=== PATIENT | female | born 1955 | race Caucasian/White ===

== ENCOUNTER 2016-04-19 16:01 | Inpatient (IN) | payer OTHER, MEDICARE ==
[~2016-04-19] VITALS: Ht 177.8 cm; Wt 92.1 kg
[~2016-04-19 16:01] MED LIST: AMARYL 2MG T2 MG/TAB PO; ASPIRIN 81M81 MG/TA2 PO; B-121000 MCG PO; BROVANA15 MCG/2 M IH; COMBIRESP IH; COZAAR 50MG50 MG/TAB PO; DALIRESP500 MCG PO; GLUCOPHAGE XR500 M1 PO; LIPITOR 40MG TA40 MG PO; PROTONIX 40MG T40 MG PO; SPIRIVA RE2.5 MCG/Ac IH; THEO-24400 MG PO; TOPROL XL 50MG50 MG PO; ZANTAC 150MG T150 MG PO
[2016-04-19] MEDS ORDERED: NORCO 325 MG-51 TAB PO (16:55)
[2016-04-19] MEDS ORDERED: COMPAZINE 110 MG/TAB PO (16:55)
[2016-04-19 17:10] VITALS: BP 100/42; PULSE 121; TEMP 98.7
[2016-04-19] MEDS ORDERED: TUSS PO (17:10)
[2016-04-19 19:46] VITALS: BP 103/60; PULSE 129; TEMP 99
[2016-04-19 23:53] VITALS: BP 101/52; PULSE 127; TEMP 98.9
[2016-04-20] VITALS (7 sets, daily range): BP systolic 106–120; BP diastolic 45–55; PULSE 99–115; TEMP 98.1–98.5
[2016-04-20 01:29] LABS: PH 6 (5-8); SQUAMOUS EPITHELIAL 0-2 /hpf; URINE APPEARANCE Clear; URINE BACTERIA Moderate /hpf; URINE BILIRUBIN Negative (NEGATIVE); URINE BLOOD Negative (NEGATIVE); URINE COLOR Yellow; URINE GLUCOSE Negative (NEGATIVE); URINE KETONE Negative (NEGATIVE); URINE RBC 0-2 /hpf; URINE UROBILINOGEN Negative (NEGATIVE)
[2016-04-20 11:47] LABS: MEAN CELL VOLUME 87 fl (80.0-100.0); MEAN CORPUSCULAR HGB CONC 32 g/dl (33.0-37.0); MEAN PLATELET VOLUME 9.1 fl (7.4-10.4); RED BLOOD COUNT 2.25 M/mm3 (4.10-5.30); REDCELL DISTRIBUTION WIDTH-CV 15.9 % (11.5-14.5)
[2016-04-20 11:59] LABS: ADD PATHOLOGY DIFF REVIEW NO; HEMATOCRIT 19.6 % (37.0-47.0); HEMOGLOBIN 6.3 g/dl (12.5-16.0); MEAN CORPUSCULAR HEMOGLOBIN 28 pg (27.0-31.0); PLATELET COUNT 23 K/mm3 (130-400)
[2016-04-20 12:41] LABS: BAND 20 % (0-10); BASOPHIL 8 % (0-2); EOSINOPHIL 12 % (0-4); NEUTROPHILS 24 % (42.0-75.2); TOTAL CELLS COUNTED 100
[2016-04-21] VITALS (12 sets, daily range): BP systolic 100–117; BP diastolic 38–58; PULSE 77–106; TEMP 97.5–98.4
[2016-04-21 07:51] LABS: BASO # 0.1 (0.0-0.2); EOS # 0.3 (0.0-0.7); EOS % 9.4 % (0-4.0); GRAN # 1.6 (1.4-6.5); GRAN % 61.1 % (42.2-75.2); LYMPH # 0.5 (1.2-3.4); LYMPH % 17.2 % (20.0-51.0); MEAN CELL VOLUME 85 fl (80.0-100.0); MEAN CORPUSCULAR HGB CONC 33 g/dl (33.0-37.0); MEAN PLATELET VOLUME 10.3 fl (7.4-10.4); MONO # 0.2 (0.1-0.6); MONO % 8.6 % (1.7-9.3); RED BLOOD COUNT 3.05 M/mm3 (4.10-5.30); REDCELL DISTRIBUTION WIDTH-CV 15.1 % (11.5-14.5); WHITE BLOOD COUNT 2.7 K/mm3 (4.8-10.8)
[2016-04-21 08:07] LABS: CALCIUM 8.9 mg/dL (8.4-10.2); CREATININE, serum 0.54 mg/dL (0.52-1.25); POTASSIUM 3.6 mmol/L (3.4-5.0)
[2016-04-21 08:23] LABS: HEMOGLOBIN 8.6 g/dl (12.5-16.0); MEAN CORPUSCULAR HEMOGLOBIN 28 pg (27.0-31.0); PLATELET COUNT 17 K/mm3 (130-400)
[2016-04-21 08:24] LABS: ADD PATHOLOGY DIFF REVIEW NO
[2016-04-21 09:10] LABS: BAND 37 % (0-10); BASOPHIL 2 % (0-2); EOSINOPHIL 10 % (0-4); METAMYELOCYTE 1 % (0-0); MYELOCYTE 1 % (0-0); NEUTROPHILS 22 % (42.0-75.2); TOTAL CELLS COUNTED 100
[2016-04-22 00:01] VITALS: BP 112/46; PULSE 98; TEMP 98.5
[2016-04-22 03:51] VITALS: BP 117/41; PULSE 93; TEMP 98.3
[2016-04-22 07:12] LABS: MEAN CELL VOLUME 85 fl (80.0-100.0); MEAN CORPUSCULAR HGB CONC 33 g/dl (33.0-37.0); MEAN PLATELET VOLUME 11.4 fl (7.4-10.4); RED BLOOD COUNT 3.05 M/mm3 (4.10-5.30)
[2016-04-22 07:24] LABS: CREATININE, serum 0.57 mg/dL (0.52-1.25); POTASSIUM 3.3 mmol/L (3.4-5.0)
[2016-04-22 07:58] LABS: HEMATOCRIT 25.9 % (37.0-47.0); HEMOGLOBIN 8.6 g/dl (12.5-16.0); MEAN CORPUSCULAR HEMOGLOBIN 28 pg (27.0-31.0)
[2016-04-22 07:59] LABS: PLATELET COUNT 19 K/mm3 (130-400)
[2016-04-22 08:00] LABS: ADD PATHOLOGY DIFF REVIEW NO
[2016-04-22 08:49] VITALS: BP 133/57; PULSE 99; TEMP 98.1
[2016-04-22 11:47] LABS: BAND 35 % (0-10); EOSINOPHIL 7 % (0-4); METAMYELOCYTE 4 % (0-0); PLATELET ESTIMATE DECREASED (NORMAL)
[2016-04-22 11:49] LABS: BASOPHIL 1 % (0-2); DOHLE BODIES PRESENT; NEUTROPHILS 36 % (42.0-75.2); TOTAL CELLS COUNTED 100; TOXIC GRANULATION PRESENT
[2016-04-22 12:31] VITALS: BP 136/68; PULSE 107; TEMP 98.1
[2016-04-22] MEDS ORDERED: ROXANOL 20MG20 MG/ML PO (15:37)
== END 2016-04-22 18:32 | disposition home or self-care (01) | DRG 809 ==
LOC: MEDICAL 16:01
PROVIDERS: Family Medicine; Internal Medicine; Nurse Practitioner Family
DX: D70.9 Neutropenia, unspecified (principal); K52.1 Toxic gastroenteritis and colitis; N39.0 Urinary tract infection, site not specified; C34.92 Malignant neoplasm of unspecified part of left bronchus or lung; C34.91 Malignant neoplasm of unspecified part of right bronchus or lung; E44.0 Moderate protein-calorie malnutrition; R50.81 Fever presenting with conditions classified elsewhere; E86.0 Dehydration; K20.8 Other esophagitis; D64.81 Anemia due to antineoplastic chemotherapy; D69.59 Other secondary thrombocytopenia; T45.1X5A Adverse effect of antineoplastic and immunosuppressive drugs, initial encounter; R13.10 Dysphagia, unspecified; E87.6 Hypokalemia; J44.9 Chronic obstructive pulmonary disease, unspecified; E78.5 Hyperlipidemia, unspecified; Z99.81 Dependence on supplemental oxygen; Z87.891 Personal history of nicotine dependence; E11.649 Type 2 diabetes mellitus with hypoglycemia without coma; Z79.84 Long term (current) use of oral hypoglycemic drugs; Z68.28 Body mass index [BMI] 28.0-28.9, adult
CPT/HCPCS: 99222-AI; 99232-AI; 99239; C9113; J1170; J1200; J1447; J2185; J2405; J7030; J7042; P9040

== ENCOUNTER 2016-05-01 13:29 | Emergency (ER) | payer OTHER, MEDICARE ==
[~2016-05-01] VITALS: Ht 177.8 cm; Wt 87.3 kg
[~2016-05-01 13:29] MED LIST changes: +COMPAZINE 110 MG/TAB PO; +NORCO 325 MG-51 TAB PO; +ROXANOL 20MG20 MG/ML PO; +TUSS PO
[2016-05-01 13:30] VITALS: TEMP 98.4
[2016-05-01 14:39] LABS: BASO % 0.3 % (0.0-2.0); EOS % 0.3 % (0-4.0); GRAN % 82.3 % (42.2-75.2); LYMPH % 7.9 % (20.0-51.0); MEAN CELL VOLUME 88 fl (80.0-100.0); MEAN CORPUSCULAR HGB CONC 32 g/dl (33.0-37.0); MEAN PLATELET VOLUME 9.1 fl (7.4-10.4); MONO % 8.1 % (1.7-9.3); PLATELET COUNT 594 K/mm3 (130-400); RED BLOOD COUNT 3.59 M/mm3 (4.10-5.30); WHITE BLOOD COUNT 12.2 K/mm3 (4.8-10.8)
[2016-05-01 14:41] LABS: HEMATOCRIT 31.7 % (37.0-47.0); HEMOGLOBIN 10.1 g/dl (12.5-16.0); MEAN CORPUSCULAR HEMOGLOBIN 28 pg (27.0-31.0)
[2016-05-01 14:48] LABS: ADJUSTED CALCIUM 10.2 mg/dL (8.4-10.2); ALBUMIN 3.9 gm/dL (3.5-5.0); BILIRUBIN,TOTAL 0.8 mg/dL (0.0-1.0); CALCIUM 10.1 mg/dL (8.4-10.2); CREATININE, serum 0.72 mg/dL (0.52-1.25); POTASSIUM 4.1 mmol/L (3.4-5.0); TOTAL PROTEIN 7.4 gm/dL (6.4-8.2)
[2016-05-01 14:49] LABS: INFLUENZA B NEGATIVE
[2016-05-01 15:55] VITALS: BP 126/65
[2016-05-01 15:56] LABS: PH 8 (5-8); SQUAMOUS EPITHELIAL 0-2 /hpf; URINE APPEARANCE Clear; URINE BACTERIA None Seen /hpf; URINE BILIRUBIN Negative (NEGATIVE); URINE BLOOD Negative (NEGATIVE); URINE COLOR Straw; URINE GLUCOSE Negative (NEGATIVE); URINE KETONE Negative (NEGATIVE); URINE RBC 0-2 /hpf; URINE UROBILINOGEN Negative (NEGATIVE)
[2016-05-01 16:33] VITALS: PULSE 123
== END 2016-05-01 16:35 | disposition home or self-care (01) ==
LOC: COL.ER 13:29
PROVIDERS: Emergency Medicine
DX: R53.1 Weakness (principal); D64.9 Anemia, unspecified; I10 Essential (primary) hypertension; E11.9 Type 2 diabetes mellitus without complications; J44.9 Chronic obstructive pulmonary disease, unspecified; Z99.81 Dependence on supplemental oxygen; Z79.899 Other long term (current) drug therapy; Z87.891 Personal history of nicotine dependence; Z92.3 Personal history of irradiation; Z79.84 Long term (current) use of oral hypoglycemic drugs
CPT/HCPCS: J7030

== ENCOUNTER → 2016-08-02 | Outpatient (CLI) | payer OTHER, MEDICARE | LOC: COL.RAD 12:03 | DX: C34.81 Malignant neoplasm of overlapping sites of right bronchus and lung (principal) | CPT/HCPCS: A9585 ==

== ENCOUNTER → 2017-09-05 | Outpatient (CLI) | payer OTHER, MEDICARE | LOC: COL.RAD 09:43 | DX: C34.81 Malignant neoplasm of overlapping sites of right bronchus and lung (principal); C79.31 Secondary malignant neoplasm of brain; I10 Essential (primary) hypertension; J44.9 Chronic obstructive pulmonary disease, unspecified | CPT/HCPCS: A9585 ==

== ENCOUNTER 2017-09-09 10:55 | Emergency (ER) | payer OTHER, MEDICARE ==
[~2017-09-09] VITALS: Ht 177.8 cm; Wt 91.8 kg
[2017-09-09] MEDS ORDERED: DECADRON 4MG TAB4 MG PO (11:14)
[2017-09-09 12:32] LABS: BASO % 0.3 % (0.0-2.0); EOS % 0.4 % (0-4.0); GRAN % 77.5 % (42.2-75.2); HEMOGLOBIN 11.7 g/dl (12.5-16.0); LYMPH # 1.3 (1.2-3.4); LYMPH % 13.8 % (20.0-51.0); MEAN CELL VOLUME 89 fl (80.0-100.0); MEAN CORPUSCULAR HEMOGLOBIN 29 pg (27.0-31.0); MEAN CORPUSCULAR HGB CONC 33 g/dl (33.0-37.0); MONO # 0.7 (0.1-0.6); MONO % 7.6 % (1.7-9.3); PLATELET COUNT 277 K/mm3 (130-400); RED BLOOD COUNT 4.01 M/mm3 (4.10-5.30); REDCELL DISTRIBUTION WIDTH-CV 15.8 % (11.5-14.5)
[2017-09-09 12:33] LABS: HEMATOCRIT 35.7 % (37.0-47.0)
[2017-09-09 12:42] LABS: ALBUMIN 3.9 gm/dL (3.5-5.0); BILIRUBIN,TOTAL 0.4 mg/dL (0.0-1.0); CALCIUM 9.4 mg/dL (8.4-10.2); CREATININE, serum 0.73 mg/dL (0.52-1.25); POTASSIUM 3.7 mmol/L (3.4-5.0); TOTAL PROTEIN 6.8 gm/dL (6.4-8.2)
[2017-09-09 14:25] VITALS: BP 126/71; PULSE 97; TEMP 97.9
== END 2017-09-09 14:25 | disposition home or self-care (01) ==
LOC: COL.ER 10:55
PROVIDERS: Emergency Medicine
DX: R51 Headache (principal); C34.90 Malignant neoplasm of unspecified part of unspecified bronchus or lung; C79.31 Secondary malignant neoplasm of brain
CPT/HCPCS: J1100; J1170

== ENCOUNTER → 2017-10-08 | Outpatient (CLI) | payer OTHER, MEDICARE ==
[~2017-10-08] MED LIST changes: +DECADRON 4MG TAB4 MG PO
== END ==
LOC: COL.RAD 10:14
DX: C79.31 Secondary malignant neoplasm of brain (principal); C34.81 Malignant neoplasm of overlapping sites of right bronchus and lung; I10 Essential (primary) hypertension
CPT/HCPCS: A9585

== ENCOUNTER → 2017-10-29 | Outpatient (REF) | LOC: ZLAB.STJ 09:14 | DX: A04.72 Enterocolitis due to Clostridium difficile, not specified as recurrent (principal) ==

== ENCOUNTER → 2017-11-13 | Outpatient (REF) ==
[2017-11-13 13:53] LABS: BASO # 0.1 (0.0-0.2); BASO % 0.7 % (0.0-2.0); EOS # 0.1 (0.0-0.7); EOS % 0.8 % (0-4.0); GRAN # 7.9 (1.4-6.5); HEMOGLOBIN 10.7 g/dl (12.5-16.0); LYMPH # 1.7 (1.2-3.4); LYMPH % 15.9 % (20.0-51.0); MEAN CELL VOLUME 93 fl (80.0-100.0); MEAN CORPUSCULAR HEMOGLOBIN 30 pg (27.0-31.0); MEAN CORPUSCULAR HGB CONC 32 g/dl (33.0-37.0); MEAN PLATELET VOLUME 9.1 fl (7.4-10.4); MONO # 0.7 (0.1-0.6); MONO % 6.3 % (1.7-9.3); PLATELET COUNT 294 K/mm3 (130-400); REDCELL DISTRIBUTION WIDTH-CV 16.3 % (11.5-14.5)
[2017-11-13 13:54] LABS: HEMATOCRIT 33.4 % (37.0-47.0)
[2017-11-13 14:03] LABS: ALBUMIN 3.3 gm/dL (3.5-5.0); BILIRUBIN,TOTAL 0.4 mg/dL (0.0-1.0); CALCIUM 9.1 mg/dL (8.4-10.2); CREATININE, serum 0.59 mg/dL (0.52-1.25); MAGNESIUM 1.5 mg/dL (1.6-2.3); POTASSIUM 3.4 mmol/L (3.4-5.0); TOTAL PROTEIN 6.2 gm/dL (6.4-8.2)
== END ==
LOC: ZLAB.STJ 13:45
PROVIDERS: Internal Medicine
DX: R79.89 Other specified abnormal findings of blood chemistry (principal); R74.0 Nonspecific elevation of levels of transaminase and lactic acid dehydrogenase [LDH]; E61.2 Magnesium deficiency